=== PATIENT | male | born 2000 | race Hispanic/Latino ===

== ENCOUNTER 2020-03-16 11:20 | Outpatient (CLI) | payer OTHER, SELFPAY ==
[2020-03-16 11:52] LABS: Basophils Percent Auto 0.5 % (0.2-1.2); Eosinophils Absolute Auto 0.1 K/mm3 (0-0.3); Eosinophils Percent Auto 1.1 % (0-4.4); Hematocrit 44.5 % (42.0-52.0); Hemoglobin 14.4 g/dL (14.0-18.0); Immature Granulocyte Absolute 0.02 K/mm3 (0.00-0.031); Immature Granulocyte Percent A 0.4 % (0-0.5); Lymphocytes Absolute Auto 2.14 K/mm3 (0.9-3.2); Lymphocytes Percent Auto 37.8 % (18.3-44.2); Mean Corpuscular HGB Conc 32.4 g/dl (32-36); Mean Corpuscular Hemoglobin 27.8 pg (26-34); Mean Corpuscular Volume 85.9 fl (80-100); Mean Platelet Volume 9.9 fl (7.4-10.4); Monocytes Absolute Auto 0.6 K/mm3 (0.1-0.6); Monocytes Percent Auto 10.4 % (2.6-8.5); Neutrophils Absolute Auto 2.8 K/mm3 (1.3-6.7); Neutrophils Percent Auto 49.8 % (45.5-73.1); Platelet Count Result 195 k/mm3 (150-375); Red Blood Count 5.18 M/mm3 (4.6-6.20); White Blood Count 5.7 K/mm3 (4.5-10.0)
[2020-03-16 12:12] LABS: CRP < 0.5 mg/dL (<1.0); Rheumatoid Factor < 8.6 IU/ML (<12); Uric Acid 5.9 mg/dL (3.5-8.5)
[2020-03-16 12:54] LABS: Erythrocyte Sedimentation Rate 3 mm/hr (0-20)
== END 2020-03-16 11:21 | disposition home or self-care (01) ==
LOC: ANHLAB 11:22
PROVIDERS: Visit Provider Orthopaedic Surgery
DX: M17.0 Bilateral primary osteoarthritis of knee (principal)
CPT/HCPCS: 36415; 84550; 85025; 85652; 86038; 86140; 86430

== ENCOUNTER 2024-06-17 17:04 | Outpatient (CLI) | payer OTHER, SELFPAY ==
[2024-06-17 17:26] LABS: Basophils Absolute Auto 0.1 K/mm3 (0.0-0.1); Basophils Percent Auto 0.7 % (0.2-1.2); Eosinophils Percent Auto 0.3 % (0-4.4); Hematocrit 48.1 % (42.0-52.0); Immature Granulocyte Absolute 0.03 K/mm3 (0.00-0.031); Immature Granulocyte Percent A 0.4 % (0-0.5); Lymphocytes Absolute Auto 1.65 K/mm3 (0.9-3.2); Lymphocytes Percent Auto 24.2 % (18.3-44.2); Mean Corpuscular HGB Conc 33.3 g/dl (32-36); Mean Corpuscular Hemoglobin 28.6 pg (26-34); Mean Corpuscular Volume 85.9 fl (80-100); Mean Platelet Volume 9.6 fl (7.4-10.4); Monocytes Absolute Auto 0.6 K/mm3 (0.1-0.6); Monocytes Percent Auto 9.2 % (2.6-8.5); Neutrophils Absolute Auto 4.4 K/mm3 (1.3-6.7); Neutrophils Percent Auto 65.2 % (45.5-73.1); Platelet Count Result 248 k/mm3 (150-375); Red Cell Distribution Width 11.7 % (11.5-14.5); White Blood Count 6.8 K/mm3 (4.5-10.0)
[2024-06-17 17:42] LABS: Add Urine Microscopic? NO; Appearance Urine Clear (Clear); Bilirubin Urine Negative (Negative); Blood Urine Negative (Negative); Color Urine Yellow (Yellow); Glucose Urine UA Negative (Negative); Ketones Urine Negative (Negative); Leukocyte Esterase Ur Negative LEU/UL (Negative); Nitrate Urine Negative (Negative); Protein Urine Negative (Negative); Specific Grav Ur 1.019 (1.001-1.035)
[2024-06-17 19:22] LABS: Alanine Aminotransferase 22 U/L (6-50); Albumin Level 4.9 g/dL (3.5-5.1); Alkaline Phosphatase 73 U/L (38-126); Anion Gap 8 mmol/L (4-12); Aspartate Amino Transferase 33 U/L (17-59); Bilirubin,Total 1.5 mg/dL (0.2-1.3); Blood Urea Nitrogen 11 mg/dL (9-20); Calcium 9.7 mg/dL (8.4-10.2); Carbon Dioxide 30 mmol/L (22-30); Chloride 100 mmol/L (98-107); Estimated Glomerular Filt Rate > 60; Glucose 130 mg/dL (65-110); Potassium 4.1 mmol/L (3.4-5.0); Sodium 138 mmol/L (137-145)
[2024-06-17 20:03] LABS: HIV 1/2 Ab P24 Ag Result Negative (Negative)
[2024-06-18 10:21] LABS: Rapid Plasma Reagin Non-Reactive (NonReactive)
== END 2024-06-17 17:05 | disposition home or self-care (01) ==
LOC: ANHLAB 17:07
PROVIDERS: PCP Internal Medicine; Visit Provider Internal Medicine
DX: N50.89 Other specified disorders of the male genital organs (principal); Z77.21 Contact with and (suspected) exposure to potentially hazardous body fluids
CPT/HCPCS: 36415; 80053; 81003; 85025; 86592; 86695; 86696; 86703; G0432

== ENCOUNTER 2024-06-25 15:37 | Outpatient (CLI) | payer OTHER, SELFPAY ==
--- NOTE | ~2024-06-25 | US_ITS ---
EXAMINATION: US scrotum doppler DATE: 06/25/2024 16:02 INDICATION: Palpable abnormality within the right testicle TECHNIQUE: Sonographic evaluation of the scrotum was performed assessing grayscale appearance and col or Doppler flow. Spectral Doppler evaluation was also performed. COMPARISON: None. FINDINGS: RIGHT TESTICLE: The right testicle measures 4.3 x 3.5 x 1.9 cm. Arterial and venous flow are present. RIGHT EPIDIDYMIS: The right epididymis measures 10 mm. Within the right epididymis is a well circumscribed, anechoic, avascular structure measuring 5 x 4 x 3 mm, consistent with a simple epididymal head cyst for which no further follow-up is needed. Prominent vasculature with Valsalva. Pre-Valsalva measurement less than 3 mm. LEFT TESTICLE: The left testicle measures 5 x 3 x 2 cm. Arterial and venous flow are demonstrated. LEFT EPIDIDYMIS: The left epididymis measures 10 mm. Prominent vasculature with Valsalva. Pre-Valsalva measurement less than 3 mm. IMPRESSION: Right epididymal head simple cyst measuring 5 mm in greatest dimension. Otherwise, unremarkable sonographic evaluation of the scrotum, as detailed above. Reviewed, dictated and finalized at location A. IMPRESSION: Right epididymal head simple cyst measuring 5 mm in greatest dimension. Otherwise, unremarkable sonographic evaluation of the scrotum, as detailed timbo soriano.
== END 2024-06-25 15:38 | disposition home or self-care (01) ==
LOC: GOSHIMG 15:38
PROVIDERS: PCP Internal Medicine; Visit Provider Internal Medicine
DX: N50.3 Cyst of epididymis (principal)
CPT/HCPCS: 76870; 93976